=== PATIENT | male | born 1955 | race Caucasian/White ===

== ENCOUNTER 2020-04-06 10:50 | Day surgery (SDC) | payer MEDICARE, OTHER ==
[~2020-04-06] VITALS: Ht 165.1 cm; Wt 63.5 kg
[2020-04-06] VITALS (8 sets, daily range): BP systolic 112–148; BP diastolic 51–77
[~2020-04-06 10:50] MED LIST: ceFAZolin sod 1 GM in NS 55 ML IVPB ONE
[2020-04-06] MEDS ORDERED: ONE DAILY MEN'1 EACH ORAL (11:19)
[2020-04-06] MEDS ORDERED: MULTIVITAMINS1 EAC2 ORAL (11:19)
[2020-04-06] MEDS ORDERED: Iothalamate Meglumine 60% 30ML INJ ONE (12:15)
--- NOTE | 2020-04-06 12:19 | Pre-Procedure Note/Attestation ---
Pre-Procedure Note/Attestation Complete Prior to Procedure Planned Procedure: not applicable Procedure Narrative: TURBT bilateral RPG Indications for Procedure Pre-Operative Diagnosis: bladder Tumor Attestation I attest that I discussed the nature of the procedure; its benefits; risks and complications; and alternatives (and the risks and benefits of such alternatives ), prior to the procedure, with the patient (or the patient's legal medical detail representative). I attest that, if there was a reasonable possibility of needing a blood transfusion, the patient (or the patient's legal medical detail representative) was given the [facility] standardized written summary, pursuant to the Alen Julio Blood Safety Act ([place] Health and Safety Code # 1645, as amended). I attest that I re-evaluated the patient just prior to the surgery and that there has been no change in the patient's H&P, except as documented below: Mukesh Woody MD Apr 06, 2020 12:19
[2020-04-06] MEDS ORDERED: Midazolam 2mg/2ml Inj ONE (12:27)
[2020-04-06] MEDS ORDERED: fentaNYL 100 mcg/2 mL IV ONE (12:27)
[2020-04-06] MEDS ORDERED: Neostigmine 1mg/ml 10ml Inj ONE (12:30)
[2020-04-06] MEDS ORDERED: Rocuronium Bromide 100mg/10ml Inj IV ONE (12:30)
[2020-04-06] MEDS ORDERED: Glycopyrrolate 0.2mg/ml 1ml Vial ONE (12:30)
[2020-04-06] MEDS ORDERED: NS Irrig 4000ml IRRIG ONE (12:30)
[2020-04-06] MEDS ORDERED: NS Irrig 1000ml ONE (12:30)
[2020-04-06] MEDS ORDERED: LR 1000ml ONE (12:30)
[2020-04-06] MEDS ORDERED: Sterile Water Irrig 1000ml IRRIG ONE (12:30)
[2020-04-06] MEDS ORDERED: Lidocaine 1% MPF 10mg/ml 5ml ONE (12:40)
[2020-04-06] MEDS ORDERED: Metoclopramide 10mg/2ml Inj ONE (12:40)
[2020-04-06] MEDS ORDERED: fentaNYL 100 mcg/2 mL IV PRN (13:10)
[2020-04-06] MEDS ORDERED: Hydromorphone 0.5mg/0.5ml inj IVP PRN (13:10)
[2020-04-06] MEDS ORDERED: Acetaminophen (Non formulary) 100 ML IV ONE (13:15)
--- NOTE | 2020-04-06 13:17 | Brief Operative Note ---
Immediate Post Operative Note Operative Note Pre-op Diagnosis: bladder Tumor Procedure: TURBT RPG Post-op Diagnosis: same Post-op Diagnosis: same as pre-op Surgeon: Jak Woody Anesthesia: general Specimen: yes Complications: none Condition: stable Fluids: 1000 Estimated Blood Loss: minimal Implant(s) used?: No Mukesh Woody MD Apr 06, 2020 13:17
[2020-04-06] MEDS ORDERED: D5 1/2NS 1,000 ML IV SCH (13:30)
[2020-04-06] MEDS ORDERED: HYDROcodone/Acetamin 5/325 tab ORAL PRN (13:30)
[2020-04-06] MEDS ORDERED: Tylenol #3 tab (300mg/30mg) ORAL PRN (13:30)
[2020-04-06] MEDS ORDERED: HYDROmorphone 1mg/ml Carpuject SUBQ PRN (13:30)
--- NOTE | 2020-04-06 14:05 | Immediate Post-Op Evaluation ---
Immediate Post-Op Evalulation Immediate Post-Op Evalulation Procedure: turp Date of Evaluation: Apr 06, 2020 Time of Evaluation: 13:25 IV Fluids: 500 Blood Products: 0 Blood Pressure Systolic: 133 Blood Pressure Diastolic: 77 Pulse Rate: 84 Respiratory Rate: 14 O2 Sat by Pulse Oximetry: 100 Temperature (Fahrenheit): 97.2 Nausea: No Vomiting: No Patient Status: awake, reacts, patent Hydration Status: adequate Drug: ancef Given Within 1 Hr of Incision: Yes Time Given: 12:40 Jayne Priest CRNA Apr 06, 2020 14:05
--- NOTE | 2020-04-06 14:06 | Anethesia Preoperative Eval ---
Anesthesia Pre-op PMH/ROS General Date of Evaluation: Apr 06, 2020 Time of Evaluation: 12:30 Anesthesiologist: connor ASA Score: ASA 1 Mallampati Score Class I : Soft palate, uvula, fauces, pillars visible Class II: Soft palate, uvula, fauces visible Class III: Soft palate, base of uvula visible Class IV: Only hard plate visible Mallampati Classification: Class II Surgeon: armaan Diagnosis: bladder tumor Surgical Procedure: TURP Anesthesia History: none Family History: no anesthesia problems Allergies: Coded Allergies: No Known Allergies (Unverified , 04/06/20) Medications: see eMAR Patient NPO?: Yes NPO Date: Apr 06, 2020 NPO Time: 00:01 Past Medical History Cardiovascular: Denies: CAD, [place], valve dz, arrhythmia, other Pulmonary: Denies: asthma, COPD, DANI, other Gastrointestinal/Genitourinary: Denies: GERD, CRI, ESRD, other Neurologic/Psychiatric: Denies: dementia, CVA, depression/anxiety, TIA, other Endocrine: Denies: DM, hypothyroidism, steroids, other HEENT: Denies: cataract (L), cataract (R), glaucoma, [place] (L), [place] (R), other Hematology/Immune: Denies: anemia, DVT, bleeding disorder, other Musculoskeletal/Integumentary: Denies: OA, RA, DJD, DDD, edema, other PSxH Narrative: seechart Anesthesia Pre-op Phys. Exam Physician Exam Last Vital Signs Date Time Temp Pulse Resp B/P (MAP) Pulse Ox O2 Delivery O2 Flow Rate FiO2 04/06/20 13:35 92 23 148/68 100 Simple Mask 6 04/06/20 13:20 97.2 Constitutional: NAD Neurologic: CN 2-12 intact Cardiovascular: RRR Respiratory: CTA Airway Exam Mallampati Classification 2 Mallampati Score: Class II MO: full ROM: full Dentures: no upper, no lower Anesthesia Pre-op A/P Studies Pre-op Studies: EKG - SR Risk Assessment & Plan Plan: general Status Change Before Surgery: No Pre-Antibiotics Drug: ancef Given Within 1 Hr of Incision: Yes Time Given: 12:40 Jayne Priest CRNA Apr 06, 2020 14:06
--- NOTE | 2020-04-06 14:19 | Diagnostic Imaging Report ---
INDICATION: Pain, intraoperative TECHNIQUE: Intraoperative imaging Fluoroscopy time: 14.9 seconds Total dose: 0.25508 mGym2 Total number of images: 10 COMPARISON: None FINDINGS: Intraoperative images demonstrate opacification of normal caliber left ureter and renal collecting system and subsequently normal caliber right ureter and right renal collecting system. IMPRESSION: Intraoperative imaging, as described
--- NOTE | 2020-04-06 22:30 | Operative Note - Dictated ---
DATE OF OPERATION: 04/06/2020 PREOPERATIVE DIAGNOSIS: Bladder tumor. POSTOPERATIVE DIAGNOSIS: Bladder tumor. OPERATION: Transurethral resection of the bladder tumor with bilateral retrograde pyelogram, transurethral incision of prostate. OPERATED BY: Mukesh Woody MD ANESTHESIA: General. FINDINGS: Multiple bladder tumors in the posterior and left lateral wall of the bladder, enlarged prostate. INDICATIONS FOR SURGERY: Patient had been diagnosed with bladder cancer approximately a year or so ago by another urologist. Refused procedures at that time. Recent cystoscopy in my office showed growing left lateral wall renal tumor. 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 Treatment options were explained to him in great length including all potential complications. He signed a consent. DESCRIPTION OF PROCEDURE: Brought to the operating room, placed in lithotomy position. Prepped and draped in standard fashion. Under general anesthesia, cystoscope was introduced into the bladder. Bilateral retrogrades were normal. Transurethral resectoscope was then introduced. Multiple tumors in the posterior wall of the bladder was resected and coagulated. Larger tumor on the left lateral wall was resected including muscles and also fulgurated. After that, transurethral incision of the prostate was made in 5 and 7 degree positions because of the large median lobe and potential difficulties with re-treatments with BCG and multiple possible TURBTs. No bleeding. Turner catheter 20-Bengali was placed and left indwelling. Patient tolerated procedure well. Sponge count, instrument count was correct. Mukesh Woody M.D. DR: ROSSY JOB#: [id number] CC:
[2020-04-07 08:41] VITALS: BP 134/70
--- NOTE | 2020-04-07 08:41 | 48 Hour Post Anesthesia Eval ---
Post Anesthesia Evaluation Procedure: turp Date of Evaluation: Apr 07, 2020 Time of Evaluation: 08:41 Blood Pressure Systolic: 134 0: 70 Pulse Rate: 14 O2 Sat by Pulse Oximetry: 98 Airway: patent Nausea: No Vomiting: No Hydration Status: adequate Cardiopulmonary Status: stable Mental Status/LOC: patient returned to baseline Post-Anesthesia Complications: none Follow-up care needed: N/A Jayne Priest CRNA Apr 07, 2020 08:41
== END 2020-04-06 14:30 | disposition home or self-care (01) ==
LOC: SUR 10:50
DX: C67.9 Malignant neoplasm of bladder, unspecified (principal); K21.9 Gastro-esophageal reflux disease without esophagitis; N40.0 Benign prostatic hyperplasia without lower urinary tract symptoms
CPT/HCPCS: 52240; 52450; 74420; 76000; 94003; J0690; J2250; J2405; J2704; J2710; J2765; J3010; J7120; Q9961; 94150